=== PATIENT | female | born 2000 | race Asian ===

== ENCOUNTER 2020-04-01 20:34 | Emergency (ER) | payer MEDICAID ==
[~2020-04-01] VITALS: Ht 160 cm; Wt 63.2 kg
[2020-04-01 21:03] VITALS: Ht 160 cm; Wt 63.2 kg
[2020-04-01 22:51] VITALS: BP 122/83
== END 2020-04-01 21:03 | disposition home or self-care (01) ==
LOC: ED 20:34
DX: S05.01XA Injury of conjunctiva and corneal abrasion without foreign body, right eye, initial encounter (principal); X58.XXXA Exposure to other specified factors, initial encounter; Y93.89 Activity, other specified; Y92.89 Other specified places as the place of occurrence of the external cause; Y99.8 Other external cause status